=== PATIENT | male | born 2000 ===

== ENCOUNTER 2025-01-03 18:48 | Emergency (ER) | payer SELFPAY ==
[2025-01-03] MEDS: Orphenadrine 60 MG/2 ML Inj IM ONE (19:42)
[2025-01-03] MEDS: Ketorolac 30 MG/ML SDV IM ONE (19:43)
== END 2025-01-03 20:26 | disposition home or self-care (01) ==
LOC: MW.ED 18:48
DX: S29.011A Strain of muscle and tendon of front wall of thorax, initial encounter (principal); J45.909 Unspecified asthma, uncomplicated; Z75.3 Unavailability and inaccessibility of health-care facilities; Z79.51 Long term (current) use of inhaled steroids; Z79.899 Other long term (current) drug therapy; X50.0XXA Overexertion from strenuous movement or load, initial encounter; Y93.89 Activity, other specified
CPT/HCPCS: 96372; 99283; J1885; J2360; 99282